=== PATIENT | male | born 1945 | race Caucasian/White ===

== ENCOUNTER 2022-01-21 12:43 | Emergency (ER) | payer OTHER | END 2022-01-21 20:40 | disposition home or self-care (01) | LOC: ER1 12:43 | DX: I73.9 Peripheral vascular disease, unspecified (principal); I11.0 Hypertensive heart disease with heart failure; I50.9 Heart failure, unspecified; I25.10 Atherosclerotic heart disease of native coronary artery without angina pectoris | CPT/HCPCS: 93925; 99284 ==